=== PATIENT | male | born 1985 | race Native Hawaiian/Other Pacific Islander ===

== ENCOUNTER 2020-06-01 15:12 | Outpatient (REF) | payer SELFPAY | END 2020-06-01 15:13 | disposition home or self-care (01) | LOC: HO.LAB 15:12 | PROVIDERS: Visit Provider Internal Medicine | DX: Z20.828 Contact with and (suspected) exposure to other viral communicable diseases (principal) | CPT/HCPCS: C9803; U0003 ==